=== PATIENT | female | born 1995 | race Caucasian/White ===

== ENCOUNTER 2024-06-13 04:07 | Emergency (ER) | payer OTHER ==
--- OUTSIDE RECORDS SUMMARY | 2024-06-13 04:10 | XMS REPORT | Continuity of Care Document ---
Author Name Unknown Address [address] [facility] [place] [address] [facility] Address [address] [facility] [address] [place] [address] Care Team Providers Care Antenna Engineer Name Role Phone Dayan Adame Attending Clinician Shalonda Samano Attending Clinician Dayan Hamilton Admitting Clinician [place] son Payers Payer Name Policy Type Policy Number Effective Date Expirati on Date Source Allergies, Adverse Reactions, Alerts Allergy Name Allergy Type Status Severity Reaction(s) Onset Date Inactive Date Treating Clinician Comments Source No Known Allergie s DA Active U -14 00:00: 00 [facility] No Known Allergie s DA Active U 612 00:00: 00 [facility] No Known Allergie s DA Active U 10-05 00:00: 00 [facility] Procedures Procedure Date / Time Performed Performing Clinicia n Source [id number] 2023-11-23 00:00:00 [facility] [id number] 2023-11-23 00:00:00 [facility] [id number] 2023-11-23 00:00:00 [facility] [id number] 2023-11-23 00:00:00 [facility] [id number] 2023-11-23 00:00:00 [facility] Encounters Start Date/Time End Date/Time Encounter Type Admission Type Attending Clinicians Care Facility Care Department Encounter ID Source 2023-11-22 01:13:00 2023-11-25 18:25:00 Inpatient Dayan Fu [facility] OBPP [id number] [facility] 2023-11-20 17:56:00 2023-11-20 20:15:00 Emergency EM Shalonda Spivey [facility] ANNETTA [id number] [facility] Results Test Description Test Time Test Comments Results Result Co mments Source LACTIC [id number] 06:38:00* Test Item Value Reference Range Interpretation Comme nts LACTIC ACID (test code = LACT) 1.6 mmol/L 0.5-2.2 N PROTHROMBIN [id number] 06:15:00* Test Item Value Reference Range Interpretation Comme nts PROTHROMBIN TIME PATIENT (te st code = PTP) 11.4 secs 9.8-13.3 N IS PATIENT ON ANTICOAGULANTS ? NINTERNATIONAL NORMAL [id number] 06:15:00* Test Item Value Reference Range Interpretation Comme nts INTERNATIONAL NORMAL RATIO (test code = INR) 1.00 The INR is to be used only for monitoring oral anticoagulanttherapy. INDICATION INR VALUE 1. Prophylaxis including high risk surgery 2.0 - 2.52. Deep venous thrombosis. Pulmonary embolism. Atrial fibrillation or bioprosthetic heart valves 2.0 - 3.03. Mechanical heart valves or recurrent systemic embolism. 3.0 - 3.5 IS PATIENT ON ANTICOAGULANTS ? NTHROMBOPLASTIN TIME [id number] 06:15:00* Test Item Value Reference Range Interpretation Comme nts THROMBOPLASTIN TIME PARTIAL (test code = PTT) 26 secs 26.2-37.2 L IS PATIENT ON ANTICOAGULANTS ? NUA RFLX MICR CULT IF [id number] 05:56:00* Test Item Value Reference Range Interpretation Comme nts UA COLOR (test code = COLU) YELLOW YELLOW UA APPEARANCE (test code = APPU) CLEAR CLEAR UA GLUCOSE DIPSTICK (test code = DGLUU) NEGATIVE NEG UA BILIRUBIN DIPSTICK (test code = BILU) NEGATIVE NEG UA KETONE DIPSTICK (test code = KETU) NEGATIVE NEG UA SPECIFIC GRAVITY (test code = SGU) 1.006 1.001-1.035 N UA BLOOD DIPSTICK (test code = ROCIO) 2+ NEG A UA PH DIPSTICK (test code = JUORDAN) 6.0 5-9 UA PROTEIN DIPSTICK (test code = PROU) 1+ NEG A UA UROBILINIOGEN DIPSTICK (test code = URO) NEGATIVE mg/dL NEG UA NITRITE DIPSTICK (test code = ADRIANA) NEG NEG UA LEUKOCYTE ESTERASE DIPSTICK (test code = LEUU) 1+ NEG A UA WBC (test code = WBCU) 21-30 #/hpf NONE SEEN A UA RBC (test code = RBCU) TOO NUMEROUS T O CNT #/hpf NONE SEEN A UA EPITHELIAL CELLS (test code = EPIU) NONE SEEN #/HPF RARE-FEW UA BACTERIA (test code = BACU) RARE /HPF RARE-FEW UA MUCUS (test code = MUCU) RARE NONE SEEN Indication for culture: Temperature > 100.4 FSpecimen Description: CATHETERCBC W/AUTO [id number] 05:51:00* Test Item Value Reference Range Interpretation Comme nts WHITE BLOOD CELL (test code = WBC) 15.7 K/mm3 6.5-12.3 H RED BLOOD CELL (test code = RBC) 3.61 M/mm3 3.51-4.69 N HEMOGLOBIN (test code = HGB) 11.1 g/dL 10.1-13.8 N HEMATOCRIT (test code = HCT) 33.7 % 32.5-41.8 N MEAN CELL VOLUME (test code = MCV) 93.4 fL 84.6-96.6 N MEAN CELL HGB (test code = MCH) 30.7 pg 27.3-33.9 N MEAN CELL HGB CONCETRATION ( test code = MCHC) 32.9 gm/dL 32.0-34.2 N RED CELL DISTRIBUTION WIDTH (test code = RDW) 13.5 % 12.2-16.3 N PLATELET COUNT (test code = PLT) 175 K/mm3 134-363 N MEAN PLATELET VOLUME (test c ode = MPV) 12.2 fL 9.2-12.7 N NEUTROPHIL % (test code = NT%) 87.3 % 57.9-77.3 H LYMPHOCYTE % (test code = LY%) 7.5 % 14.5-29.7 L MONOCYTE % (test code = MO%) 4.3 % 3.6-10.2 N EOSINOPHIL % (test code = EO%) 0.2 % 0.0-3.0 N BASOPHIL % (test code = BA%) 0.2 % 0.1-0.9 N NEUTROPHIL # (test code = NT#) 13.7 K/mm3 LYMPHOCYTE # (test code = LY#) 1.2 K/mm3 MONOCYTE # (test code = MO#) 0.7 K/mm3 EOSINOPHIL # (test code = EO#) 0.03 K/mm3 BASOPHIL # (test code = BA#) 0.0 K/mm3 RBC MORPHOLOGY REQUIRED (vahe t code = RBCM) NORMAL NORMAL PLATELET MORPHOLOGY REQUIRED (test code = PLTMR) NORMAL NORMAL AG HEPATITIS B [id number] 05:00:00* Test Item Value Reference Range Interpretation Comme nts AG HEPATITIS B SURFACE (test code = HBSAG) NONREACTIVE NONREACTIVE AB HEPATITIS C [id number] 05:00:00* Test Item Value Reference Range Interpretation Comme nts AB HEPATITIS C (test code = HCVAB) NONREACTIVE NONREACTIVE SIGNAL TO CUTOFF (test code = CUTOFF) 0.08 <0.80 N AB [id number] 05:00:00* Test Item Value Reference Range Interpretation Comme nts AB TREPONEMA (test code = TREPAB) NONREACTIVE NONREACTIVE AB HIV 1 05:00:00* Test Item Value Reference Range Interpretation Comme nts AB HIV 1 2 (test code = [id number]) NONREACTIVE NONREACTIVE Done by [employer] HIV Ag/Ab Combo Screen CBC W/AUTO [id number] 03:46:00* Test Item Value Reference Range Interpretation Comme nts WHITE BLOOD CELL (test code = WBC) 11.7 K/mm3 6.5-12.3 N RED BLOOD CELL (test code = RBC) 3.76 M/mm3 3.51-4.69 N HEMOGLOBIN (test code = HGB) 11.7 g/dL 10.1-13.8 N HEMATOCRIT (test code = HCT) 34.5 % 32.5-41.8 N MEAN CELL VOLUME (test code = MCV) 91.8 fL 84.6-96.6 N MEAN CELL HGB (test code = MCH) 31.1 pg 27.3-33.9 N MEAN CELL HGB CONCETRATION ( test code = MCHC) 33.9 gm/dL 32.0-34.2 N RED CELL DISTRIBUTION WIDTH (test code = RDW) 13.4 % 12.2-16.3 N PLATELET COUNT (test code = PLT) 193 K/mm3 134-363 N MEAN PLATELET VOLUME (test c ode = MPV) 12.7 fL 9.2-12.7 N NEUTROPHIL % (test code = NT%) 71.0 % 57.9-77.3 N LYMPHOCYTE % (test code = LY%) 21.8 % 14.5-29.7 N MONOCYTE % (test code = MO%) 5.8 % 3.6-10.2 N EOSINOPHIL % (test code = EO%) 0.7 % 0.0-3.0 N BASOPHIL % (test code = BA%) 0.3 % 0.1-0.9 N NEUTROPHIL # (test code = NT#) 8.3 K/mm3 LYMPHOCYTE # (test code = LY#) 2.5 K/mm3 MONOCYTE # (test code = MO#) 0.7 K/mm3 EOSINOPHIL # (test code = EO#) 0.08 K/mm3 BASOPHIL # (test code = BA#) 0.0 K/mm3 AG HEPATITIS B [id number] 23:53:00* Test Item Value Reference Range Interpretation Comme nts AG HEPATITIS B SURFACE (test code = HBSAG) NONREACTIVE NONREACTIVE AB HEPATITIS C [id number] 23:53:00* Test Item Value Reference Range Interpretation Comme nts AB HEPATITIS C (test code = HCVAB) NONREACTIVE NONREACTIVE SIGNAL TO CUTOFF (test code = CUTOFF) 0.07 <0.80 N AB [id number] 23:53:00* Test Item Value Reference Range Interpretation Comme nts AB TREPONEMA (test code = TREPAB) NONREACTIVE NONREACTIVE AB HIV 1 23:53:00* Test Item Value Reference Range Interpretation Comme nts AB HIV 1 2 (test code = [id number]) NONREACTIVE NONREACTIVE Done by [employer] HIV Ag/Ab Combo Screen URIC [id number] 19:12:00* Test Item Value Reference Range Interpretation Comme nts URIC ACID (test code = URIC) 7.5 mg/dL 3.1-7.8 N Please note new normal range as of October 2023 LACTIC DEHYDROGENASE(LDH)2023-11-20 19:12:00* Test Item Value Reference Range Interpretation Comme nts LACTIC DEHYDROGENASE(LDH) (test code = LDH) 225 units/L 120-246 N Please note ne w normal range as of October 2023 COMPREHENSIVE METABOLIC [id number] 19:12:00* Test Item Value Reference Range Interpretation Comme nts SODIUM (test code = NA) 140 mEq/L 136-145 N POTASSIUM (test code = K) 3.9 mEQ/L 3.4-4.5 N Please note new normal range as of October 2023 CHLORIDE (test code = CL) 110 mEq/L 98-107 H Please note new normal range as of October 2023 CARBON DIOXIDE (test code = CO2) 23 mEq/L 22-31 N ANION GAP (test code = GAP) 10.9 10-20 N GLUCOSE (test code = GLU) 89 mg/dL 74-106 N Please note new normal range as of October 2023 BLOOD UREA NITROGEN (test code = BUN) 9 mg/dL 8-23 N Please note ne w normal range as of October 2023 CREATININE (test code = CREAT) 0.8 mg/dL 0.55-1.02 N Please note new normal range as of October 2023 TOTAL PROTEIN (test code = PROT) 6.8 g/dL 5.7-8.2 N Please note new normal range as of October 2023 ALBUMIN (test code = ALB) 4.2 g/dL 3.2-4.8 N Please note new normal range as of October 2023 CALCIUM (test code = CA) 9.3 mg/dL 8.3-10.6 N Please note new normal range as of October 2023 BILIRUBIN TOTAL (test code = BILT) 0.3 mg/dL 0.3-1.2 N Please note n ew normal range as of October 2023 SGOT/AST (test code = AST) 19 units/L < 34 SGPT/ALT (test code = ALT) 14 units/L 10-49 N ALKALINE PHOSPHATASE TOTAL (test code = ALKP) 86 units/L 46-116 N Please note n ew normal range as of October 2023 GLOMERULAR FILTRATION RATE (test code = GFR) 102.86 ml/min >60 N The Glomerular Filtration Rate is a calculated parameterbased on serum Creatinine, patient age and sex. GFR valuesless than 60 mL/min/1.73 square meters are indicative ofChronic Kidney Disease. Values less than 15 mL/min/1.73square meters indicate Kidney failure. The calculation forGFR is based on the CKD-EPI (2021) calculation. This formulais race indifferent and is the recommended formula for GFRby the National Kidney Foundation for Adults.The GFR will not calculate if the sex is unknown or if thepatient's age is <18 years. UR PROTEIN/CREATININE [id number] 18:40:00* Test Item Value Reference Range Interpretation Comme nts UR PROTEIN RANDOM (test code = PROTU) <6 mg/dL No reference range available UR CREATININE RANDOM (test code = CREATU) 33 mg/dL No referenc e range available PROTEIN/CREATININE RATIO (test code = P/CRATIO) <200.0 mg/gcrea <200 CBC W/AUTO [id number] 18:28:00* Test Item Value Reference Range Interpretation Comme nts WHITE BLOOD CELL (test code = WBC) 13.1 K/mm3 6.5-12.3 H RED BLOOD CELL (test code = RBC) 4.02 M/mm3 3.51-4.69 N HEMOGLOBIN (test code = HGB) 12.4 g/dL 10.1-13.8 N HEMATOCRIT (test code = HCT) 36.9 % 32.5-41.8 N MEAN CELL VOLUME (test code = MCV) 91.8 fL 84.6-96.6 N MEAN CELL HGB (test code = MCH) 30.8 pg 27.3-33.9 N MEAN CELL HGB CONCETRATION ( test code = MCHC) 33.6 gm/dL 32.0-34.2 N RED CELL DISTRIBUTION WIDTH (test code = RDW) 13.3 % 12.2-16.3 N PLATELET COUNT (test code = PLT) 205 K/mm3 134-363 N MEAN PLATELET VOLUME (test c ode = MPV) 12.3 fL 9.2-12.7 N NEUTROPHIL % (test code = NT%) 76.7 % 57.9-77.3 N LYMPHOCYTE % (test code = LY%) 18.2 % 14.5-29.7 N MONOCYTE % (test code = MO%) 4.0 % 3.6-10.2 N EOSINOPHIL % (test code = EO%) 0.5 % 0.0-3.0 N BASOPHIL % (test code = BA%) 0.2 % 0.1-0.9 N NEUTROPHIL # (test code = NT#) 10.1 K/mm3 LYMPHOCYTE # (test code = LY#) 2.4 K/mm3 MONOCYTE # (test code = MO#) 0.5 K/mm3 EOSINOPHIL # (test code = EO#) 0.07 K/mm3 BASOPHIL # (test code = BA#) 0.0 K/mm3 URINALYSIS [id number] 18:28:00* Test Item Value Reference Range Interpretation Comme nts UA COLOR (test code = COLU) STRAW YELLOW UA APPEARANCE (test code = APPU) CLEAR CLEAR UA GLUCOSE DIPSTICK (test co de = DGLUU) NEGATIVE NEG UA BILIRUBIN DIPSTICK (test code = BILU) NEGATIVE NEG UA KETONE DIPSTICK (test cod e = KETU) NEGATIVE NEG UA SPECIFIC GRAVITY (test co de = SGU) 1.003 1.001-1.035 N UA BLOOD DIPSTICK (test code = ROCIO) NEG NEG UA PH DIPSTICK (test code = JOURDAN) 7.0 5-9 UA PROTEIN DIPSTICK (test co de = PROU) NEGATIVE NEG UA UROBILINIOGEN DIPSTICK (test code = URO) NEGATIVE mg/dL NEG UA NITRITE DIPSTICK (test co de = ADRIANA) NEG NEG UA LEUKOCYTE ESTERASE DIPSTI CK (test code = LEUU) NEG NEG UA EPITHELIAL CELLS (test co de = EPIU) RARE #/HPF RARE-FEW URINE SAMPLE: CLEAN CATCH
[2024-06-13] MEDS ORDERED: ONDANSETRON 4 MG/2 ML VIAL ONE (04:37)
[2024-06-13 04:38] LABS: Absolute Eosinophils 0.1 K/uL (0-0.5); Absolute Monocytes 0.5 K/uL (0.1-1.3); Absolute Neutrophil 8.3 K/uL (1.8-8.0); Basophils % 0.4 % (0-1.3); Eosinophils % 0.6 % (0-4.4); Hematocrit 41.1 % (36.0-45.0); Hemoglobin 13.7 g/dL (12.0-15.0); Lymphocytes % 18.4 % (15.3-44.8); MCH 29.6 pg (27.0-35.0); MCHC 33.4 g/dL (32.0-36.0); MCV 88.6 fL (80-100); MPV 8.7 fL (7.6-11.3); Monocytes % 4.6 % (3.3-12.3); Nucleated Red Blood Cells % 0.1 % (0-0); Platelets 287 thou/uL (152-406); RBC Red Blood Cell Count 4.64 M/uL (3.86-4.86); Red Cell Distribution Width 14.1 % (12.1-15.2)
[2024-06-13] MEDS ORDERED: FAMOTIDINE 20 MG/2 ML VIAL IV ONE (04:38)
[2024-06-13] MEDS ORDERED: NA CHLORIDE 0.9% 1,000 ML ONE (04:38)
[2024-06-13 04:51] LABS: Albumin 3.7 g/dL (3.4-5.0); Albumin/Globulin Ratio 0.9 (1.1-1.8); Anion Gap 10.2 mEq/L (5.0-15.0); Bilirubin Total 0.6 mg/dL (0.2-1.0); Globulin 4.2 g/dL (2.3-3.5); Potassium 4.2 mEq/L (3.5-5.1); Protein, Total 7.9 g/dL (6.4-8.2)
[2024-06-13] MEDS ORDERED: PROMETHAZINE INJ 25 MG/ML AMP ONE (04:55)
[2024-06-13 04:56] LABS: Specific Gravity 1.022 (1.005-1.030); Urine Bacteria None Seen /HPF (<20); Urine Bilirubin NEGATIVE (Negative); Urine Blood Negative (Negative); Urine Clarity Extremely Turbid (Clear); Urine Color Yellow (Yellow); Urine Crystals Unidentified Few /HPF (None Seen); Urine Culture Reflex Order NOT NEEDED; Urine Glucose NEGATIVE (Negative); Urine Ketones NEGATIVE (Negative); Urine Microscopic Reflex YN ORDER UMIC; Urine Mucus Slight /HPF (None Seen); Urine Nitrite NEGATIVE (Negative); Urine Protein NEGATIVE (Negative); Urine RBC <5 /HPF (None Seen); Urine Urobilinogen Normal (Normal); Urine pH 7.5 (5.0-7.0)
[2024-06-13] MEDS ORDERED: MORPHINE 4 MG/ML SYR ONE (04:56)
--- NOTE | 2024-06-13 07:03 | RAD REPORT ---
EXAM: Right upper quadrant ultrasound. CLINICAL HISTORY: ABD PAIN COMPARISON: CT study same date FINDINGS: Gallbladder: Normal. Bile ducts: No intrahepatic or extrahepatic biliary dilatation. Common bile duct measures 6 mm. Limited imaging of the liver shows no concerning finding. IMPRESSION: Unremarkable exam.
--- NOTE | 2024-06-13 07:29 | RAD REPORT ---
EXAM: CT CHEST, ABDOMEN AND PELVIS WITH CONTRAST CLINICAL INDICATION: CHEST PAIN TECHNIQUE: CT chest, abdomen and pelvis was performed, following the administration of contrast, as p er department protocol. Axial, sagittal and coronal reconstructions were obtained. One or more of the following dose reduction techniques were used: Automated exposure control, adjustment of the mA a nd/or kV according to patient size, and/or iterative reconstruction. Unless otherwise specified, incidental findings do not require dedicated imaging follow-up. COMPARISON: No prior exam. FINDINGS: LUNGS: No evidence of airspace or interstitial process. No nodules. PLEURA: No pleural effusion. No pneumothorax. MEDIASTINUM AND LYMPH NODES: No mediastinal mass or fluid collection. Normal size mediastinal, hilar, and axillary lymph nodes. OSSEOUS STRUCTURES AND CHEST WALL: Intact. LIVER: The liver demonstrates mild fatty infiltration. No focal lesion or biliary dilatation is seen. Tiny right lobe low density lesion incompletely assessed but likely benign. Mild gallbladder distention. PANCREAS: No mass, ductal dilation, or doris-pancreatic fluid. SPLEEN: Normal size. No focal lesion. ADRENALS: Normal; no mass. KIDNEYS: Normal size and contour. No hydronephrosis. URINARY BLADDER: Normal contour. GASTROINTESTINAL TRACT: No bowel obstruction, free air, significant free fluid or abscess. APPENDIX: Appendix surgically absent. LYMPH NODES: No lymphadenopathy. MUSCULOSKELETAL: No acute or suspicious osseous abnormality. OTHER: IMPRESSION: No acute or significant abnormalities seen in the chest, abdomen or pelvis.
--- NOTE | 2024-06-13 07:35 | EDPHYS ---
Physician Documentation [facility] Name: Bethanie Warner Age: 28 yrs Sex: Female : 1995 Arrival Date: 06/13/2024 Time: 04:07 Bed 13 Private MD: ED Physician Norman Paez HPI: 06/13 04:12 This 28 yrs old Female presents to ER via Unassigned with complaints of sp4 Abdominal Pain, Nausea/Vomiting, Back Pain, Chest Pain. 04:47 28-year-old female with past medical history of polycystic ovarian syndrome presents sp4 with acute onset of epigastric abdominal pain with radiation into the chest and upper back.. 04:49 Patient reports she was admitted to [facility] 3 months ago for similar pain and she sp4 had cardiac workup to rule out heart related issues. Patient reports history of appendectomy.. 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 - Infectious Disease History:: Denies. - Family history:: not pertinent. - Social history:: Smoking status: Patient denies any tobacco usage or history of. ROS: 04:50 Constitutional: Negative for fever, chills, and weight loss, positive for nausea, sp4 positive vomiting, positive epigastric pain, positive chest pain positive back pain 04:50 All other systems are negative, Exam: 04:50 Constitutional: This is a well developed, well nourished patient who is awake, alert, sp4 and in no acute distress. Head/Face: Normocephalic, atraumatic. Eyes: Pupils equal round and reactive to light, extra-ocular motions intact. Lids and lashes normal. Conjunctiva and sclera are not injected. Cornea within normal limits. Periorbital areas with no swelling, redness, or edema. ENT: Nares patent. No nasal discharge, no septal abnormalities noted. Tympanic membranes are normal and external auditory canals are clear. Oropharynx with no redness, swelling, or masses, exudates, or evidence of obstruction, uvula midline. Mucous membranes moist. Neck: Trachea midline, no thyromegaly or masses palpated, and no cervical lymphadenopathy. Supple, full range of motion without nuchal rigidity, or vertebral point tenderness. Chest/axilla: Normal chest wall appearance and motion. Nontender with no deformity. No lesions are appreciated. Cardiovascular: Regular rate and rhythm with a normal S1 and S2. No gallops, murmurs, or rubs. Normal PMI, no JVD. No pulse deficits. Respiratory: Lungs have equal breath sounds bilaterally, clear to auscultation and percussion. No rales, rhonchi or wheezes noted. No increased work of breathing, no retractions or nasal flaring. Abdomen/GI: Soft, with normal bowel sounds. No distension or tympany. No guarding or rebound. No evidence of tenderness throughout. Back: No spinal tenderness. No costovertebral tenderness. Skin: Warm, dry with normal turgor. Normal color with no rashes, no lesions, and no evidence of cellulitis. MS/ Extremity: Pulses equal, no cyanosis. Neurovascular intact. Full, normal range of motion. Neuro: Awake and alert, GCS 15, oriented to person, place, time, and situation. Cranial nerves II-XII grossly intact. Motor strength 5/5 in all extremities. Sensory grossly intact. Psych: Awake, alert, with orientation to person, place and time. Behavior, mood, and affect are within normal limits 04:50 ECG was reviewed by the Attending Physician. EKG at 0 445 normal sinus rhythm with sinus arrhythmia rate 82 Vital Signs: 01:50 Weight 128.37 kg; Height 5 ft. 8 in. ; kj2 03:00 BP 124 / 62; Pulse 70; Resp 18; Temp 98; Pulse Ox 100% on R/A; kj2 04:00 BP 126 / 68; Pulse 72; Resp 20; Pulse Ox 100% on R/A; kj2 04:50 BP 126 / 70; Pulse 58; Resp 18; Pulse Ox 100% on R/A; kj2 06:00 BP 130 / 70; Pulse 70; Resp 18; Pulse Ox 100% on R/A; kj2 06:45 BP 126 / 76; Pulse 70; Resp 20; Pulse Ox 98% on R/A; kj2 07:40 BP 122 / 74; Pulse 71; Resp 17; Pulse Ox 99% on R/A; rs5 01:50 Body Mass Index 43.03 (128.37 kg, 172.72 cm) kj2 Luis Fernando Coma Score: 04:50 Eye Response: spontaneous(4). Motor Response: obeys commands(6). Verbal Response: sp4 oriented(5). Total: 15. MDM: 04:15 Medical Screening Exam initiated sp4 04:52 Differential Diagnosis altered mental status, sepsis, flu. Data reviewed: vital signs, sp4 nurses notes, old medical records, lab test result(s), EKG, radiologic studies, CT scan, ultrasound. 07:07 Consideration of Admission/Observation Escalation of care including sp4 admission/observation considered. ED course: Patient improved after medications.. 07:33 ED course: Patient signed out to me by previous physician, in brief arrives today for ec2 evaluation of abdominal pain along with nausea and vomiting. Plan is to follow-up CT imaging. Lab work shows reassuring CBC, reassuring metabolic profile, lipase that is within normal ranges. Urine that is negative. UA that is noninfectious appearing. Ultrasound that is negative. CT imaging that is nonacute. Will discharge home have the patient follow-up with PCP. Return precautions given.. 06/13 04:14 Order name: CBC with Diff; Complete Time: 06:10 06/13 04:14 Order name: CMP; Complete Time: 06:10 06/13 04:14 Order name: Lipase; Complete Time: 06:10 06/13 04:14 Order name: Test, Urine; Complete Time: 06:10 06/13 04:14 Order name: Urinalysis w/ reflexes; Complete Time: 06:10 06/13 04:38 Order name: CRP; Complete Time: 06:10 06/13 04:38 Order name: CT Chest, Abdomen, Pelvis - W/Contrast; Complete Time: 07:32 sp06/13 04:49 Order name: US Abdomen Limited; Complete Time: 07:08 06/13 04:38 Order name: EKG; Complete Time: 04:39 06/13 04:15 Order name: IV Saline Lock; Complete Time: 04:26 06/13 04:15 Order name: Labs collected and sent; Complete Time: 04:26 06/13 04:38 Order name: EKG - Nurse/Tech; Complete Time: 04:48 sp4 EC:45 Rate is 82 beats/min. Rhythm is regular, Normal Sinus Rhythm. QRS [place] is Normal. [place] sp4 interval is normal. QRS interval is normal. QT interval is normal. No Q waves. T waves are Normal. No ST changes noted. Clinical impression: Normal ECG. Interpreted by me. Reviewed by me. Administered Medications: 04:49 Drug: Famotidine IVP 20 mg IVP once; dilute with 10 mL 0.9% NaCl; give over 2 minutes kj2 Route: IVP; Site: left antecubital; 07:01 Follow up: Response: No adverse reaction rs5 04:49 Drug: Ondansetron IVP 8 mg IVP once; over 2 minutes Route: IVP; Site: left antecubital; kj2 07:00 Follow up: Response: No adverse reaction; Nausea is decreased rs5 04:49 Drug: NS 0.9% IV 1000 ml IV at 1 bolus Per protocol; to be given as a bolus over 60 kj2 minutes Route: IV; Rate: 1 bolus; Site: left antecubital; 06:09 Follow up: Response: No adverse reaction; IV Intake: 999ml rs5 05:03 Drug: morphine IVP or IV 8 mg IVP once over 4 mins Route: IVP; Infused Over: 4 mins; kj2 Site: left antecubital; 07:20 Follow up: Response: No adverse reaction kj2 05:03 Drug: Promethazine IM 25 mg IM once Route: IM; Site: left deltoid; kj2 07:20 Follow up: Response: No adverse reaction kj2 Disposition Summary: 06/13/24 07:33 Discharge Ordered Notes: Location: Home ec2 Condition: Stable ec2 Diagnosis - Upper abdominal pain, unspecified ec2 - Nausea with vomiting, unspecified ec2 Followup: ec2 - With: Private Physician - When: - Reason: Re-evaluation by your physician Discharge Instructions: - Discharge Summary Sheet ec2 - Nausea and Vomiting, Adult ec2 Forms: - Medication Reconciliation Form ec2 - Antibiotic Education ec2 - Prescription Opioid Use ec2 - Patient Portal Instructions ec2 - Leadership Thank You Letter ec2 Prescriptions: - Zofran 4 mg Oral Tablet - take 1 tablet ORAL route every 12 hours As needed; 20 tablet; Refills: 0, ec2 Product Selection Permitted - Pepcid 20 mg Oral Tablet - take 1 tablet ORAL route once daily; 20 tablet; Refills: 0, Product Selection ec2 Permitted Signatures: Dispatcher [employer] Armen Manzo MD MD sp4 Norman Paez MD MD ec2 Vanesa Alvarez, RN RN kj2 Blayne Shi RN rs5
--- NOTE | 2024-06-13 07:35 | ER ---
Nurse's Notes [facility] Name: Bethanie Warner Age: 28 yrs Sex: Female : 1995 Arrival Date: 06/13/2024 Time: 04:07 Bed 13 Private MD: Diagnosis: Upper abdominal pain, unspecified;Nausea with vomiting, unspecified Presentation: 06/13 04:12 Initial Sepsis Screen: Does the patient meet any 2 criteria? No. Patient's initial kj2 sepsis screen is negative. Does the patient have a suspected source of infection? No. Patient's initial sepsis screen is negative. 04:15 Chief complaint: Patient states: abdominal pain, back pain, chest pain, nausea and kj2 vomiting. Coronavirus screen: Client denies travel out of the [place] in the last 14 days. Ebola Screen: No symptoms or risks identified at this time. Risk Assessment: Do you want to hurt yourself or someone else? Patient reports no desire to harm self or others. Onset of symptoms was June 13, 2024. 04:15 Acuity: REBEKAH 3 kj2 04:15 Method Of Arrival: Ambulatory kj2 Triage Assessment: 04:50 General: Appears in no apparent distress. uncomfortable, Behavior is cooperative. Pain: kj2 Complains of pain in abdomen, back and chest Pain currently is 10 out of 10 on a pain scale. Neuro: Level of Consciousness is awake, alert, obeys commands, Oriented to person, place, time, situation. Cardiovascular: Patient's skin is warm and dry. Respiratory: Airway is patent Respiratory effort is unlabored. GI: Reports lower abdominal pain. : No signs and/or symptoms were reported regarding the genitourinary system. 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 - Infectious Disease History:: Denies. - Family history:: not pertinent. - Social history:: Smoking status: Patient denies any tobacco usage or history of. Screenin:15 [facility] ED Fall Risk Assessment (Adult) History of falling in the last 3 months, kj2 including since admission No falls in past 3 months (0 pts) Confusion or Disorientation No (0 pts) Intoxicated or Sedated No (0 pts) Impaired Gait No (0 pts) Mobility Assist Device Used No (0 pt) Altered Elimination No (0 pt) Score/Fall Risk Level 0 - 2 = Low Risk Maintained a safe environment, Hourly rounding (assess needs \T\ fall precautionary measures) done. Abuse screen: Denies threats or abuse. Denies injuries from another. Nutritional screening: No deficits noted. Tuberculosis screening: No symptoms or risk factors identified. Assessment: 04:15 General: see triage assessment. kj2 05:00 Reassessment: Patient appears in no apparent distress at this time. Patient and/or kj2 family updated on plan of care and expected duration. Pain level reassessed. Patient is alert, oriented x 3, equal unlabored respirations, skin warm/dry/pink. 06:00 Reassessment: Patient appears in no apparent distress at this time. Patient and/or kj2 family updated on plan of care and expected duration. Pain level reassessed. Patient is alert, oriented x 3, equal unlabored respirations, skin warm/dry/pink. 07:14 Reassessment: Patient appears in no apparent distress at this time. Patient and/or kj2 family updated on plan of care and expected duration. Pain level reassessed. Patient is alert, oriented x 3, equal unlabored respirations, skin warm/dry/pink. 07:35 Reassessment: Patient and/or family updated on plan of care and expected duration. Pain rs5 level reassessed. Patient is alert, oriented x 3, equal unlabored respirations, skin warm/dry/pink. Pain: Denies pain. Neuro: Level of Consciousness is awake, alert, obeys commands, Oriented to person, place, time, situation. Cardiovascular: Patient's skin is warm and dry. Respiratory: Airway is patent Respiratory effort is even, unlabored, Respiratory pattern is regular, symmetrical. GI: Abdomen is round non-distended, Bowel sounds present X 4 quads. Abd is soft and non tender X 4 quads. : No signs and/or symptoms were reported regarding the genitourinary system. EENT: No signs and/or symptoms were reported regarding the EENT system. Derm: No signs and/or symptoms reported regarding the dermatologic system. Musculoskeletal: Range of motion: intact in all extremities. Vital Signs: 01:50 Weight 128.37 kg; Height 5 ft. 8 in. ; kj2 03:00 BP 124 / 62; Pulse 70; Resp 18; Temp 98; Pulse Ox 100% on R/A; kj2 04:00 BP 126 / 68; Pulse 72; Resp 20; Pulse Ox 100% on R/A; kj2 04:50 BP 126 / 70; Pulse 58; Resp 18; Pulse Ox 100% on R/A; kj2 06:00 BP 130 / 70; Pulse 70; Resp 18; Pulse Ox 100% on R/A; kj2 06:45 BP 126 / 76; Pulse 70; Resp 20; Pulse Ox 98% on R/A; kj2 07:40 BP 122 / 74; Pulse 71; Resp 17; Pulse Ox 99% on R/A; rs5 01:50 Body Mass Index 43.03 (128.37 kg, 172.72 cm) kj2 Houstonia Coma Score: 04:50 Eye Response: spontaneous(4). Motor Response: obeys commands(6). Verbal Response: sp4 oriented(5). Total: 15. ED Course: 04:11 Patient arrived in ED. gm2 04:12 Armen Mustafa MD is Attending Physician. sp4 04:15 Patient has correct armband on for positive identification. Bed in low position. Call kj2 light in reach. Side rails up X 1. Provided Education on: call light. 04:26 Inserted saline lock: 20 gauge in left antecubital area, using aseptic technique. Blood af3 collected. Flushed with 10 mL NS. 04:33 Vanesa Alvarez, RN is Primary Nurse. kj2 04:48 EKG done, by metal wire technician. af3 05:20 US Abdomen Limited In Process Unspecified. EDMS 05:22 Triage completed. kj2 05:31 Arm band placed on Patient placed in an exam room. kj2 05:32 No provider procedures requiring assistance completed. kj2 05:43 CT Chest, Abdomen, Pelvis - W/Contrast In Process Unspecified. EDMS 07:32 Attending Physician role handed off by Armen Mustafa MD ec2 07:32 Norman Paez MD is Attending Physician. ec2 07:45 IV discontinued, intact, bleeding controlled, No redness/swelling at site. Pressure rs5 dressing applied. Administered Medications: 04:49 Drug: Famotidine IVP 20 mg IVP once; dilute with 10 mL 0.9% NaCl; give over 2 minutes kj2 Route: IVP; Site: left antecubital; 07:01 Follow up: Response: No adverse reaction rs5 04:49 Drug: Ondansetron IVP 8 mg IVP once; over 2 minutes Route: IVP; Site: left antecubital; kj2 07:00 Follow up: Response: No adverse reaction; Nausea is decreased rs5 04:49 Drug: NS 0.9% IV 1000 ml IV at 1 bolus Per protocol; to be given as a bolus over 60 kj2 minutes Route: IV; Rate: 1 bolus; Site: left antecubital; 06:09 Follow up: Response: No adverse reaction; IV Intake: 999ml rs5 05:03 Drug: morphine IVP or IV 8 mg IVP once over 4 mins Route: IVP; Infused Over: 4 mins; kj2 Site: left antecubital; 07:20 Follow up: Response: No adverse reaction kj2 05:03 Drug: Promethazine IM 25 mg IM once Route: IM; Site: left deltoid; kj2 07:20 Follow up: Response: No adverse reaction kj2 Medication: 04:15 VIS not applicable for this client. kj2 Intake: 06:09 IV: 999ml; Total: 999ml. rs5 Outcome: 07:33 Discharge ordered by . ec2 07:45 Discharged to home ambulatory, rs5 07:45 Condition: stable rs5 07:45 Discharge instructions given to patient, family, Instructed on discharge instructions, follow up and referral plans. 07:48 Patient left the ED. rs5 Signatures: [facility] ED[facility]ayne Patricio RN RN rs5 Armen Mustafa MD MD sp4 Norman Paez MD MD ec2 Rebekah Chavez gm2 Vanesa Alvarez RN RN maggy2 Abbi Allen3 Corrections: (The following items were deleted from the chart) 05:25 04:50 General: see triage assessment. kj2 kj2 05:27 04:50 Chief complaint: Patient states: abdominal pain, back pain, chest pain, nausea kj2 and vomiting kj2 05:27 04:50 Coronavirus screen: Client denies travel out of the [place] in the last 14 days. kj2 kj2 05:27 04:50 Ebola Screen: No symptoms or risks identified at this time. 2 kj2 04:50 Initial Sepsis Screen: Does the patient meet any 2 criteria? No. Patient's 2 initial sepsis screen is negative. Does the patient have a suspected source of infection? No. Patient's initial sepsis screen is negative. 2 04:50 Risk Assessment: Do you want to hurt yourself or someone else? Patient reports no 2 desire to harm self or others. 2 04:50 Onset of symptoms was June 13, 2024 [facility] 04:50 Method Of Arrival: Ambulatory 2 04:50 Acuity: REBEKAH 3 kj2 kj2
[2024-06-13 07:56] VITALS: BP 126/76; O2SAT 98
--- NOTE | 2024-06-22 11:19 | EKG ---
Test Date: 2024-06-13 Test Time: 04:45:03 Catia Designer: AF MEASUREMENT RESULTS: Intervals: Rate: 82 ND: 162 QRSD: 92 QT: 366 QTc: 427 [place]: P: 49 ND: 162 QRS: 65 T: 56 INTERPRETIVE STATEMENTS: Normal sinus rhythm with sinus arrhythmia Normal ECG No previous ECG available for comparison Electronically Signed On 06-22-24 11:04:58 JIGGER OPERATOR by Srinivasa Multani
== END 2024-06-13 07:48 | disposition home or self-care (01) ==
LOC: ER 04:07
DX: R10.13 Epigastric pain (principal); R11.2 Nausea with vomiting, unspecified; R07.9 Chest pain, unspecified
CPT/HCPCS: 93005; 85025; 81001; 36415; 81025; 83690; 80053; 86140; 71260; 74177; 76705; 96375; 96372; 96374; 99284; Q9967; J2550; J2405; J7030

== ENCOUNTER → 2025-04-07 | Day surgery (SDC) | payer OTHER ==
[2025-04-05 16:01] LABS: Absolute Lymphocytes (CBC) 2.4 K/uL (0.7-4.9); Hematocrit 37.2 % (36.0-45.0); Hemoglobin 12.2 g/dL (12.0-15.0); MCH 28.4 pg (27.0-35.0); MCHC 32.8 g/dL (32.0-36.0); MCV 86.7 fL (80-100); MPV 8.6 fL (7.6-11.3); Nucleated RBC Absolute Count 0.0 (0-0); Nucleated Red Blood Cells % 0.1 % (0-0); RBC Red Blood Cell Count 4.29 M/uL (3.86-4.86); White Blood Count 7.80 thou/uL (4.3-10.9)
[2025-04-05 16:23] LABS: ALT/SGPT 45 U/L (13-56); AST/SGOT 14 U/L (15-37); Albumin 3.5 g/dL (3.4-5.0); Albumin/Globulin Ratio 0.9 (1.1-1.8); Alkaline Phosphatase 80 U/L (45-117); Anion Gap 9.8 mEq/L (5.0-15.0); BUN Blood Urea Nitrogen 18 mg/dL (7-18); Globulin 4.0 g/dL (2.3-3.5); Glucose Level 97 mg/dL (74-106); Lipase 57 U/L (13-75); Potassium 3.8 mEq/L (3.5-5.1)
[2025-04-05 16:34] LABS: Bilirubin Indirect, Calculated 0.1 mg/dL (0.2-0.8)
[~2025-04-07] MED LIST: FENTANYL CITR 100 MCG/2 ML ONE; GLYCOPYRROLATE 0.2 MG/ML SYR ONE; KETOROLAC 30 MG/ML INJ ONE; LIDOCAINE 2% MPF 5 ML VIAL ONE; MIDAZOLAM HCL 2 MG/2 ML INJ ONE; NEOSTIGMINE 1 MG/ML -10 ML VIAL ONE; ONDANSETRON 4 MG/2 ML VIAL ONE; ROCURONIUM 50 MG/5 ML VIAL IV ONE
[2025-04-07 07:43] VITALS: O2SAT 100
[2025-04-07] MEDS: Ringers Lactate 1,000 ML IV ONE (07:44)
[2025-04-07] MEDS: CEFOXITIN SODIUM 1 GM/VIAL ONE (07:55)
--- NOTE | 2025-04-07 08:51 | P.BOP ---
Preoperative diagnosis: Acute cholecystitis, symptomatic cholelithiasis Postoperative diagnosis: same Primary procedure: Laparoscopic cholecystectomy Estimated blood loss: <10cc Specimen: gb Findings: as above Anesthesia: General Complications: None Transferred to: Recovery Room Condition: Good
[2025-04-07] MEDS: HYDROMORPHONE HCL 1 MG/ML INJ ONE ×2 (09:07→09:19)
[2025-04-07] MEDS: ONDANSETRON 4 MG/2 ML VIAL ONE (09:21)
[2025-04-07 10:49] VITALS: BP 90/52; TEMP 97.5
--- NOTE | 2025-04-07 19:09 | OP ---
Date of Procedure: 04/07/2025 Surgeon: Mario Metzger MD Preoperative Diagnosis: Acute cholecystitis, symptomatic cholelithiasis. Postoperative Diagnosis: Acute cholecystitis, symptomatic cholelithiasis. Procedure Performed: Laparoscopic cholecystectomy. Estimated Blood Loss: Less than 10 cc. Specimen: Gallbladder. Anesthesia: General plus local. Complications: None. Indications: This is the case of a female, who comes to us with above diagnoses. Fully explained th e benefits, alternatives, and risks, which include, but not limited to infection, bleeding, damage to adjacent structures, anesthesia complication, choledocholithiasis, bile leak, pancreatitis, [place], and even . She also understands this may not relieve any symptoms. She might need more than one castillo rgical intervention. She understood, signed a consent. Description Of Procedure: The patient was brought to the operating room, placed in supine position, anesthesia was induced without complication. Abdominal area was prepped and draped in a sterile fash ion. Marcaine 0.5% was injected for local anesthetic followed by sharp incision of the skin in the i nfraumbilical region. Incision was carried down to fascia, which was opened under direct vision. Pe ritoneum was encountered, opened under direct vision. Vicryl #1 placed inside the fascia. Milind tr ocar was carefully introduced. Pneumoperitoneum was obtained. I placed 3 more trocars, 5 mm each on e of them under direct visualization in epigastric area and right upper quadrant under direct vision. At that moment, I put the grasper in the fundus of the gallbladder, where we noticed many omental a dhesions to the gallbladder. So, with the help of LigaSure, we were able to release those adhesions to identify the infundibulum. Once we have the infundibulum and fundus clearly identified, we procee ded to put a grasper in each one of them, retracted gallbladder in the inferolateral fashion exposing the triangle of Calot, obtaining critical view. We continued dissection to find out the cystic duct and cystic artery. They were isolated and freed circumferentially, and a connection between those a nd the gallbladder were clearly identified. I proceeded to ligate those by using at least 3 clips pr oximal, 1 clip distal, ligation in middle. Same was done with the cystic artery. No bile leak. No bleeding. The gallbladder was removed from liver using Bovie cauterizer and removed from abdominal c avity using EndoCatch through the umbilical incision. The area was inspected once again. No bile le ak. No bleeding. At that moment, I proceeded to remove the trocars under direct vision. Deflated t he pneumoperitoneum. Closed the fascia with #1 Vicryl, irrigated subcutaneous tissue, closed that wi th 3-0 chromic and skin in a subcuticular fashion with 3-0 chromic and Steri-Strips on top. Sponge c ounts and instrument counts were correct. The patient tolerated the procedure well. The patient on her way to Recovery in stable condition. Disposition: Home. Condition: Stable. Activity: As tolerated. No heavy lifting. Followup: Follow up in my office in 1 week. Call for appointment at [phone]. Keep area dry for 48 hours, then may shower. Keep Steri-Strip intact. Medication previously called. JOEY/EDI Voice ID: [id number] Report ID: [id number]
== END | disposition home or self-care (01) ==
LOC: OR 06:23
PROVIDERS: ATTEND Surgery
PROC: 0FT44ZZ Resection of Gallbladder, Percutaneous Endoscopic Approach (ICD-10-PCS; principal; 2025-04-07 07:30)
DX: K80.10 Calculus of gallbladder with chronic cholecystitis without obstruction (principal)
CPT/HCPCS: 85025; 80048; 36415; 80076; 88304; 83690; 47562; J1885; J2704; J2710; J2003; J2250; J3010; J1100; J1171 ×2; J0694; J2405 ×2; J7120